=== PATIENT | female | born 1990 | race African-American/Black ===

== ENCOUNTER 2017-09-05 01:57 | Emergency (ER) | payer OTHER ==
[~2017-09-05] VITALS: Ht 160 cm; Wt 158.8 kg
[2017-09-05 02:07] VITALS: BP 168/96
[2017-09-05] MEDS ORDERED: IBUP-1060 PO (02:15)
--- NOTE | 2017-09-05 02:17 | PHYS DOC ---
Adult General Chief Complaint Chief Complaint: DENTAL PROBLEM HPI HPI Patient is a 27 year old F who presents with right lower jaw molar pain. Patient states she woke up with severe tooth pain to her right lower jaw back molar. Patient has a history of severe dental caries with multiple cavities and fillings. Patient denies any swelling to the tooth or jaw. Patient denies any difficult swallowing. Patient states his pain has been coming and going for the past couple weeks or tonight was much worse. Patient has no other complaints. Patient denies any fevers. Review of Systems Review of Systems GEN: Denies fevers, chills, sweats HEENT: Tooth ache CV: Denies chest pain RESP: Denies shortness of air, cough GI: Denies n/v/d NEURO: Denies confusion, dizziness MSK: Denies weakness, joint pain/swelling Physical Exam Physical Exam GEN.: Moderate distress. Alert and oriented. HEENT: Head is normocephalic, atraumatic, widespread dental caries no identifiable abscess NECK: Supple. LUNGS: CTAB. HEART: RRR, S1, S2 present. Peripheral pulses intact ABDOMEN: Soft, nontender. Positive bowel sounds. EXTREMITIES: Without any cyanosis. NEUROLOGIC: Normal speech, normal tone PSYCHIATRIC: Normal affect, normal mood. SKIN: No ulcerations EKG EKG [] Radiology/Procedures Radiology/Procedures [] Course & Med Decision Making Course & Med Decision Making Pertinent Labs and Imaging studies reviewed. (See chart for details) ED course: Patient was seen and examined emergency room there is no identifiable until abscess seen for an I&D. Discussed pain management with the patient and the need to follow-up with dentist for further evaluation and management for pulpitis. MDM: After reviewing the chart, CC/HPI/PMH, physical exam, I do not believe the patient has a severe dental infection warranting further workup and/or admission at this time. Discussed pain management with the patient. Patient needs a follow up dentist in the next one to 2 days. Additional verbal discharge instructions were provided to the patient and that if symptoms get worse or any new symptoms arise that are worrisome to the patient she is to return to the emergency room immediately [] Dragon Disclaimer Dragon Disclaimer This electronic medical record was generated, in whole or in part, using a voice recognition dictation system. Departure Departure Impression: Primary Impression: Tooth pulpitis Disposition: HOME, SELF-CARE Condition: IMPROVED Referrals: NON,STAFF (PCP) Patient Instructions: Toothache-Brief Additional Instructions: Please follow up with your dentist next 1-2 days Scripts Ibuprofen (IBUPROFEN) 800 Mg Tablet 800 MG PO PRN Q6HRS Y for INFLAMMATION for 10 Days, #30 TAB Prov: BISI PEÑALOZA DO 09/05/17 BISI PEÑALOZA DO Sep 05, 2017 02:16
[2017-09-05] MEDS ORDERED: KETOROLAC 60 MG/2 ML INJ. IM ONE (03:00)
== END 2017-09-05 03:13 | disposition home or self-care (01) ==
LOC: ER 01:57
DX: K04.01 Reversible pulpitis (principal)
CPT/HCPCS: 96372; 99283; J1885

== ENCOUNTER 2017-12-18 10:58 | Emergency (ER) | payer MEDICARE, OTHER | END 2017-12-18 11:59 | disposition home or self-care (01) | LOC: ER 10:58 | DX: O99.89 Other specified diseases and conditions complicating pregnancy, childbirth and the puerperium (principal); H65.92 Unspecified nonsuppurative otitis media, left ear; Z3A.01 Less than 8 weeks gestation of pregnancy; Z88.1 Allergy status to other antibiotic agents | CPT/HCPCS: 99283 ==

== ENCOUNTER 2017-12-22 09:31 | Emergency (ER) | payer OTHER, MEDICARE ==
[2017-12-22] MEDS ORDERED: ONDANSETRON PF 4 MG/2 ML VIAL. ×2 (10:21)
[2017-12-22] MEDS: diphenhydrAMINE 50 MG/ML VIAL IVP ×2 (10:21)
[2017-12-22] MEDS: IV NORMAL SALINE 1000ML BAG 1,000 ML IV ×2 (10:21)
[2017-12-22] MEDS: methylPREDNISolone SOD SUCC PF 125 MG/2 ML VIAL. IV ×2 (10:22)
[2017-12-22] MEDS: FAMOTIDINE 20 MG/2 ML VIAL IVP ×2 (10:22)
[2017-12-22] MEDS: ONDANSETRON PF 4 MG/2 ML VIAL. IV ×2 (10:26)
== END 2017-12-22 12:44 | disposition home or self-care (01) ==
LOC: ER 09:31
DX: O9A.211 Injury, poisoning and certain other consequences of external causes complicating pregnancy, first trimester (principal); T78.3XXA Angioneurotic edema, initial encounter; T88.7XXA Unspecified adverse effect of drug or medicament, initial encounter; T36.0X5A Adverse effect of penicillins, initial encounter; Z3A.01 Less than 8 weeks gestation of pregnancy; Z88.1 Allergy status to other antibiotic agents; Y84.8 Other medical procedures as the cause of abnormal reaction of the patient, or of later complication, without mention of misadventure at the time of the procedure; Y92.89 Other specified places as the place of occurrence of the external cause
CPT/HCPCS: 96361; 96374; 96375; 99284-25; J1200; J2405; J2930; J7030; S0028

== ENCOUNTER 2019-08-20 09:31 | Inpatient (IN) | payer MEDICAID ==
[~2019-08-20] VITALS: Ht 160 cm; Wt 194.1 kg
[~2019-08-20 09:31] MED LIST: AMOX500C PO; AZIT250T PO; DIPH25CA58 PO; FAMO20TA5 PO; IBUP-1060 PO; ONDA4TAB10 SL; PRED50TA PO
[2019-08-20] MEDS ORDERED: 0.9 % SODIUM CHLORIDE 10 ML DISP.SYRIN. IV PRN ×2 (09:45→13:00)
[2019-08-20] MEDS ORDERED: TERBUTALINE 1 MG/ML VIAL. SQ PRN (09:45)
[2019-08-20] MEDS ORDERED: CITRIC ACID/SODIUM CITRATE 30 ML SOLUTION. PO PRN (09:45)
[2019-08-20] MEDS ORDERED: LIDOCAINE 1% PF 30 ML VIAL. INJ PRN (09:45)
[2019-08-20] MEDS ORDERED: ONDANSETRON PF 4 MG/2 ML VIAL. IV PRN ×2 (09:45→13:00)
[2019-08-20] MEDS ORDERED: OXYTOCIN 30 UNIT/500 ML PREMIX 500 ML IV PRN ×2 (09:45→13:00)
[2019-08-20 10:10] VITALS: BP 147/70
[2019-08-20] MEDS ORDERED: CLINDAMYCIN 900MG PREMIX 50 ML IV ONE (10:15)
[2019-08-20] MEDS ORDERED: ePHEDrine PF IN SALINE 50 MG/10 ML SYRINGE. IV ONE (10:27)
[2019-08-20] MEDS ORDERED: PHENYLEPHRINE in 0.9% NACL PF 1 MG/10 ML SYRINGE. IV ONE (10:27)
[2019-08-20] MEDS ORDERED: ONDANSETRON PF 4 MG/2 ML VIAL. ONE (10:29)
[2019-08-20] MEDS ORDERED: FAMOTIDINE 20 MG/2 ML VIAL ONE (10:29)
[2019-08-20] MEDS ORDERED: METOCLOPRAMIDE HCL 10 MG/2 ML VIAL. ONE (10:29)
[2019-08-20] MEDS ORDERED: fentaNYL PF VIAL 100 MCG/2 ML VIAL ONE (10:30)
[2019-08-20] MEDS ORDERED: MORPHINE PF 10 MG/10 ML AMPUL. ONE (10:31)
[2019-08-20] MEDS ORDERED: DEXTROSE 5% IV ONE (11:00)
[2019-08-20] MEDS ORDERED: GENTAMICIN SULFATE IV ONE (11:00)
[2019-08-20] MEDS ORDERED: GENTAMICIN SULFATE IV SCH (11:00)
[2019-08-20] MEDS ORDERED: DEXTROSE 5% IV SCH (11:00)
[2019-08-20 11:03] LABS: BASO % 1 % (0-3); EOS % 1 % (0-3); HEMATOCRIT 35.4 % (36.0-47.0); HEMOGLOBIN 11.7 g/dL (12.0-15.5); LYMPH # 1.7 x10^3/uL (1.0-4.8); LYMPH % 26 % (24-48); MEAN CORPUSCULAR HEMOGLOBIN 28 pg (25-35); MEAN CORPUSCULAR HGB CONC 33 g/dL (31-37); MEAN CORPUSCULAR VOLUME 85 fL (79-100); MONO # 0.5 x10^3/uL (0.0-1.1); MONO % 8 % (0-9); NEUT # 4.3 x10^3/uL (1.8-7.7); NEUT % 66 % (31-73); PLATELET COUNT 226 x10^3/uL (140-400); RED BLOOD COUNT 4.15 x10^6/uL (3.50-5.40); RED CELL DISTRIBUTION WIDTH 14.2 % (11.5-14.5); WHITE BLOOD COUNT 6.6 x10^3/uL (4.0-11.0)
[2019-08-20] MEDS: IV RINGERS,LACTATED 1000ML 1,000 ML IV SCH ×2 (11:11→17:51)
[2019-08-20] MEDS ORDERED: GLYCOPYRROLATE 1 MG/5 ML VIAL. ONE (12:05)
[2019-08-20] MEDS ORDERED: OXYTOCIN 10 UNIT/ML VIAL. ONE (12:20)
[2019-08-20] MEDS ORDERED: ZOLPIDEM 5 MG TABLET. PO PRN (13:00)
[2019-08-20] MEDS ORDERED: MAG HYDROX/ALUMINUM HYD/SIMETH 30 ML ORAL.SUSP PO PRN (13:00)
[2019-08-20] MEDS ORDERED: diphenhydrAMINE ORAL ELIXIR 12.5 MG/5 ML ML PO PRN (13:00)
[2019-08-20] MEDS ORDERED: MMR per PROTOCOL. MC PRN (13:00)
[2019-08-20] MEDS ORDERED: MAGNESIUM HYDROXIDE 2,400 MG/30 ML ORAL.SUSP. PO PRN (13:00)
[2019-08-20] MEDS ORDERED: oxyCODONE/APAP 5/325 1 TAB TABLET PO PRN (13:00)
--- NOTE | 2019-08-20 13:02 | PDOC ---
BRIEF OPERATIVE NOTE Pre-Op Diagnosis TIUP Desires RLTC/S Post-Op Diagnosis Same Procedure Performed RLTC/S Surgeon Paddy Product Mgmt Dev Manager none Anesthesia Type: Regional Specimens Obtained None Findings male 8#8oz Complications None ENOCH KO MD Aug 20, 2019 13:02
[2019-08-20 13:14] LABS: BILIRUBIN,URINE SMALL (NEG); CLARITY,URINE CLEAR; COLOR,URINE AMBER; NITRITE,URINE NEGATIVE (NEG); PH,URINE 6.5; PROTEIN,URINE NEGATIVE (NEG-TRACE)
--- NOTE | 2019-08-20 13:25 | PDOC1 ---
OB - History Hx of Present Care: Good Care Ultrasounds: Normal mid trimester US Obstetrical Complications: None Medical Complications: None Past Family/Social History * Past Medical, Surgical, Family and Obstetric Histories reviewed from chart. Blood Type: O+ Rubella: Immune RPR/VDRL: Negative GBS Status: Positive HBsAG: Negative OB - Chief Complaint & HPI Date of Admission: Date of Admission: Aug 20, 2019 at 09:31 Chief Complaint/History : 5 Para: 4 EDC: Aug 27, 2019 Reason for admission: section Admission Nurse Assessment Rev: Yes OB - Admission Exam Physical Exam Vitals: VS - Last 72 Hours, by Label Date Time Temp Pulse Resp B/P (MAP) Pulse Ox O2 Delivery O2 Flow Rate FiO2 08/20/19 10:10 98.3 87 18 147/70 (95) 100 Room Air 98.3 Heart: Regular Rate Lungs: Clear, Equal Abdomen: Gravid Extremities: Normal Pulses, No tenderness or swelling Reflexes: Normal Cervical Dilatation: None Effacement: 0% Station: Ballotable Membranes: Intact Heart Rate: Normal Accelerations: Accelerations Present Short Term Variability: Present Contractions on Admission: None Assessment/Plan Assessment/Plan TIUP AMARJIT/S ENOCH KO MD Aug 20, 2019 13:25
[2019-08-20 13:32] LABS: SQUAMOUS EPITHELIAL CELL,UR MOD /LPF
[2019-08-20 13:33] LABS: BACTERIA,URINE 0 /HPF (0-FEW)
--- NOTE | 2019-08-20 13:45 | OP ---
DATE OF SURGERY: 08/20/2019 PREOPERATIVE DIAGNOSIS: Term intrauterine , desires repeat low transverse . POSTOPERATIVE DIAGNOSIS: Term intrauterine , desires repeat low transverse . PROCEDURE: Repeat low transverse . SURGEON: Otto Thomason MD [employer] PRINCIPAL: None. ANESTHESIA: Regional. ESTIMATED BLOOD LOSS: 700 mL. FLUIDS: Crystalloid. SPECIMENS: None. COMPLICATIONS: None. CONDITION: Stable. FINDINGS: Male , Apgars 7, 8 and 9, weight 8 pounds 8 ounces. Normal uterus, tubes and ovaries. DESCRIPTION OF PROCEDURE: Risks, benefits, indications, alternatives discussed in detail with the patient, the patient was brought to OR theater, placed in the supine position with left lateral uterine displacement. After adequate regional anesthesia, the patient prepped and draped in usual sterile manner. Previous Pfannenstiel incision was incised sharply with a scalpel, carried down through subcutaneous tissue with Bovie cautery. Rectus fascia was nicked in the midline with Bovie cautery, extended laterally in each direction. With Bovie cautery, upper edge of rectus fascia was grasped x 2 with Giselle clamps, elevated above rectus muscle, both bluntly and sharply with scalpel and Bovie cautery. The same procedure was carried out on lower edge of rectus fascia. Rectus muscle was split in midline. A window was created. Care was taken not to injure any underlying structures. The rectus muscle was extended superiorly and inferiorly with Bovie cautery. With gentle stretch on rectus muscle, room was made for delivery of infant. Jeff retractor was placed within the pelvic cavity. Sponges were placed bilaterally. Low transverse hysterotomy incision was made sharply with the scalpel with care not to injure any underlying structures. Membranes were ruptured at this time. Clear fluid was noted. Incision was extended superiorly and laterally with gloved hand. Gloved hand was placed in the lower uterine segment, used to elevate head with fundal pressure from the publisher assistant. Infant was delivered on anterior abdominal wall. Infant cried spontaneously and moved all extremities. Cord was doubly clamped, transected cord between 2 clamps and infant was handed to special care nursery in attendance. Cord blood sample was taken. Placenta delivered spontaneously intact, 3-vessel cord. Any adherent membranes were wiped free with laparotomy sponge. The low transverse hysterotomy incision was reapproximated with 0 Monocryl in a running locking manner, imbricated with 0 Monocryl in a vertical mattress stitch fashion. Sponges were removed from the gutters. Gutters were clean and dry. Lower uterine segment was once again inspected and noted be hemostatic. Jeff retractor was removed. Rectus muscle was reapproximated to the midline with 3-0 Vicryl in a running manner. Rectus muscle was inspected and noted to be hemostatic. Rectus fascia was reapproximated with 0 Stratafix stitches x 2 starting from each corner and meeting in the middle. Subcutaneous tissue was irrigated copiously with warm normal saline. Skin was reapproximated with Insorb galilea. Sponge, needle and instrument counts correct x 2 per nursing staff. The patient went to postop anesthesia recovery in stable condition. OTTO THOMASON MD DR: CHATO/jessie JOB#: [id number] / [id number]
[2019-08-20] MEDS ORDERED: ceFAZolin SODIUM 1 GM in IV DEXTROSE 5% 50 ML IV SCH (14:00)
[2019-08-20] MEDS: IBUPROFEN 400 MG TABLET. PO SCH ×2 (14:00→22:00)
[2019-08-20] MEDS: KETOROLAC 30 MG/ML VIAL. IV PRN (14:26)
[2019-08-20 15:41] VITALS: BP 101/48
[2019-08-20 17:00] VITALS: BP 113/55
[2019-08-20] MEDS: FERROUS SULFATE 325 MG TABLET. PO SCH (17:00)
[2019-08-20] MEDS: CLINDAMYCIN 900MG PREMIX 50 ML IV SCH (17:51)
[2019-08-20 18:00] VITALS: BP 102/61
[2019-08-20 22:00] VITALS: BP 125/69
[2019-08-21] MEDS: KETOROLAC 30 MG/ML VIAL. IV PRN (00:47)
[2019-08-21] MEDS: IV RINGERS,LACTATED 1000ML 1,000 ML IV SCH (01:18)
[2019-08-21 01:30] VITALS: BP 102/58
[2019-08-21] MEDS: CLINDAMYCIN 900MG PREMIX 50 ML IV SCH ×2 (03:02→10:39)
[2019-08-21 06:36] LABS: BASO % 0 % (0-3); EOS # 0.1 x10^3/uL (0.0-0.7); EOS % 1 % (0-3); HEMATOCRIT 28.7 % (36.0-47.0); HEMOGLOBIN 9.7 g/dL (12.0-15.5); LYMPH # 1.2 x10^3/uL (1.0-4.8); LYMPH % 14 % (24-48); MEAN CORPUSCULAR HEMOGLOBIN 29 pg (25-35); MEAN CORPUSCULAR HGB CONC 34 g/dL (31-37); MEAN CORPUSCULAR VOLUME 86 fL (79-100); MONO # 0.9 x10^3/uL (0.0-1.1); MONO % 10 % (0-9); NEUT # 6.7 x10^3/uL (1.8-7.7); NEUT % 75 % (31-73); PLATELET COUNT 166 x10^3/uL (140-400); RED BLOOD COUNT 3.33 x10^6/uL (3.50-5.40); WHITE BLOOD COUNT 8.8 x10^3/uL (4.0-11.0)
[2019-08-21 06:58] VITALS: BP 126/69
[2019-08-21] MEDS: FERROUS SULFATE 325 MG TABLET. PO SCH ×2 (08:00→16:54)
[2019-08-21] MEDS: oxyCODONE/APAP 5/325 1 TAB TABLET PO PRN ×2 (10:39→14:33)
[2019-08-21 10:55] VITALS: BP 123/71
[2019-08-21] MEDS: IBUPROFEN 400 MG TABLET. PO SCH ×3 (14:00→22:00)
[2019-08-21 14:30] VITALS: BP 128/60
[2019-08-21 17:45] VITALS: BP 123/70
[2019-08-21] MEDS: SIMETHICONE 80 MG TAB.CHEW PO PRN (18:00)
[2019-08-21] MEDS: DOCUSATE SODIUM 100 MG CAPSULE. PO PRN (18:00)
[2019-08-21 22:03] VITALS: BP 132/76
[2019-08-22] MEDS: SIMETHICONE 80 MG TAB.CHEW PO PRN (01:42)
[2019-08-22] MEDS: IBUPROFEN 400 MG TABLET. PO SCH ×3 (01:47→21:25)
[2019-08-22 06:00] VITALS: BP 133/69
[2019-08-22 06:34] VITALS: BP 133/69
[2019-08-22] MEDS: DOCUSATE SODIUM 100 MG CAPSULE. PO PRN ×3 (08:20→17:31)
[2019-08-22] MEDS: FERROUS SULFATE 325 MG TABLET. PO SCH ×3 (08:20→17:31)
[2019-08-22] MEDS: oxyCODONE/APAP 5/325 1 TAB TABLET PO PRN ×3 (08:21→21:24)
[2019-08-22 11:00] VITALS: BP 129/74
--- NOTE | 2019-08-22 12:03 | PDOC ---
Provider Note Provider Note 08/21/19 Late Entry Doing well VSS Dressing CDI FU in AM ENOCH KO MD Aug 22, 2019 12:03
--- NOTE | 2019-08-22 12:04 | PDOC ---
Provider Note Provider Note No Complaints VSS Dressing CDI FU in AM ENOCH KO MD Aug 22, 2019 12:04
[2019-08-22 15:55] VITALS: BP_SYST 129
[2019-08-22 18:23] VITALS: BP 134/87
[2019-08-22 21:00] VITALS: BP 129/78
[2019-08-23 05:30] VITALS: BP 121/65
[2019-08-23] MEDS: IBUPROFEN 400 MG TABLET. PO SCH (09:12)
[2019-08-23] MEDS: FERROUS SULFATE 325 MG TABLET. PO SCH (09:13)
[2019-08-23] MEDS: SIMETHICONE 80 MG TAB.CHEW PO PRN (09:13)
[2019-08-23] MEDS: DOCUSATE SODIUM 100 MG CAPSULE. PO PRN (09:13)
[2019-08-23 09:19] VITALS: BP 138/86
--- NOTE | 2019-08-23 10:21 | PDOC3 ---
OB DISCHARGE SUMMARY DATE OF ADMISSION: 08/20/19 DATE OF DISCHARGE: 08/23/19 REASON FOR ADMISSION: section INTRAPARTUM PROCEDURES: : Low Cerv Trans PROBLEM LIST AT DISCHARGE Problems Medical Problems: (1) delivery, delivered, current hospitalization Status: Acute (2) Status: Acute DISCHARGE DIAGNOSIS: Term Delivered DISCHARGE INFORMATION: Activity (ad bryan), Diet (regular), Instructions (pelvic rest x 6 wks, no driving x 2 wks, no lifting > 20 lbs. x 4 wks) HOSPITAL COURSE Term gestation delivered via section without complications. EBONIE BOWERS Jr, MD Aug 23, 2019 10:21
[2019-08-23] MEDS ORDERED: DOCU-109 PO (10:23)
[2019-08-23] MEDS ORDERED: IBUP-1060 PO (10:23)
[2019-08-23] MEDS ORDERED: OXYC1TAB15 PO (10:23)
--- NOTE | 2019-08-23 10:24 | DISCH ---
DISCHARGE INSTRUCTIONS Condition on Discharge Condition on Discharge: Stable Activity After Discharge Activity Instructions for Disc: Activity as tolerated Lifting Instructions after Dis: No heavy lifting Driving Instructions after Dis: No driving for 2 weeks Diet after Discharge Diet after Discharge: Regular Contacting the DRJt after DC Call your doctor for: Concerns you may have Follow-Up Follow up with: Dr. Thomason in 1 week EBONIE BOWERS Jr, MD Aug 23, 2019 10:24
[2019-08-23 13:55] VITALS: BP 128/70
[2019-08-23 16:25] VITALS: BP 136/86
--- NOTE | 2019-08-23 16:25 | NUR ---
Pt. dc'd to home with family. Pt. ambulated to personal vehicle accompanied by RN. DC instructions given to pt, v/u. Pt. plans to follow-up with Dr. Thomason in 1 week.
== END 2019-08-23 16:25 | disposition home or self-care (01) | DRG 787 ==
LOC: OBSVTOIN 09:31 → 3 SO LND 09:31 → 3 NORTH 17:00
PROVIDERS: ADMIT Specialist; ATTEND Specialist
PROC: 10D00Z1 Extraction of Products of Conception, Low, Open Approach (ICD-10-PCS; principal; 2019-08-20)
DX: O34.211 Maternal care for low transverse scar from previous cesarean delivery (principal); D62 Acute posthemorrhagic anemia; Z37.0 Single live birth; Z3A.40 40 weeks gestation of pregnancy; O99.02 Anemia complicating childbirth
CPT/HCPCS: 36415; 81001; 85025; 86592; 86850; 86900; 86901; 87086; J0171; J1580; J1885; J2274; J2370; J2405; J2590; J2765; J3010; J3490; J7120; G0378

== ENCOUNTER 2019-08-26 04:33 | Emergency (ER) | payer MEDICAID ==
[~2019-08-26] VITALS: Ht 160 cm; Wt 194.1 kg
[~2019-08-26 04:33] MED LIST changes: +DOCU-109 PO; +OXYC1TAB15 PO
[2019-08-26] MEDS ORDERED: CEPH500C PO (05:00)
--- NOTE | 2019-08-26 05:01 | PHYS DOC ---
Past Medical History Past Medical History: No Pertinent History Past Surgical History: , Other Additional Past Surgical Histo: dental surgeries. Alcohol Use: None Drug Use: None Adult General Chief Complaint Chief Complaint: POST-OP PROBLEM HPI HPI 29-year-old female who just had a 6 days ago presents secondary to a small area of wound dehiscence. She states she rolled over and felt some fluid. She has had a little pain around the site but no redness. She's not had any fever chills or sweats. She states that she did not have a dressing left in place at the time of discharge at this time.[] Review of Systems Review of Systems Constitutional: Denies fever or chills [] Eyes: Denies change in visual acuity, redness, or eye pain [] HENT: Denies nasal congestion or sore throat [] Respiratory: Denies cough or shortness of breath [] Cardiovascular: No additional information not addressed in HPI [] GI: Denies abdominal pain, nausea, vomiting, bloody stools or diarrhea [] : Denies dysuria or hematuria [] Musculoskeletal: Denies back pain or joint pain [] Integument: Small area where the wound has opened[] Neurologic: Denies headache, focal weakness or sensory changes [] Endocrine: Denies polyuria or polydipsia [] Psychiatric: Reports depression and tearfulness All other systems were reviewed and found to be within normal limits, except as documented in this note. Allergies Allergies Allergies Coded Allergies Type Severity Reaction Last Updated Verified minocycline Allergy Intermediate FACIAL SWELLING 09/05/17 Yes amoxicillin Allergy Unknown FACIAL SWELLING/RASH 07/21/18 Yes Physical Exam Physical Exam Constitutional: Well developed, well nourished, no acute distress, non-toxic appearance. [] HENT: Normocephalic, atraumatic, bilateral external ears normal, oropharynx moist, no oral exudates, nose normal. [] Eyes: PERRLA, EOMI, conjunctiva normal, no discharge. [] Neck: Normal range of motion, no tenderness, supple, no stridor. [] Cardiovascular:Heart rate regular rhythm, no murmur [] Lungs & Thorax: Bilateral breath sounds clear to auscultation [] Abdomen: Bowel sounds normal, soft, no tenderness, no masses, no pulsatile masses abdomen is obese but otherwise benign surgical wound is described below. [] Skin: There is a 1.5 area of central dehiscence with some serosanguineous drainage otherwise the wound appears to be healing nicely[] Back: No tenderness, no CVA tenderness. [] Extremities: No tenderness, no cyanosis, no clubbing, ROM intact, no edema. [] Neurologic: Alert and oriented X 3, normal motor function, normal sensory function, no focal deficits noted. [] Psychologic: Patient is tearful during exam[] Current Patient Data Vital Signs Vital Signs Date Time Temp Pulse Resp B/P (MAP) Pulse Ox O2 Delivery O2 Flow Rate FiO2 08/26/19 04:37 98.8 91 18 147/83 (104) 96 Room Air 98.8 EKG EKG [] Radiology/Procedures Radiology/Procedures [] Course & Med Decision Making Course & Med Decision Making Pertinent Labs and Imaging studies reviewed. (See chart for details) [A wound culture was obtained. Patient was started on Keflex. A dressing was applied. The patient was encouraged to follow with Dr. Mayo today or tomorrow for recheck.] Dragon Disclaimer Dragon Disclaimer This electronic medical record was generated, in whole or in part, using a voice recognition dictation system. Departure Departure Impression: Primary Impression: Wound dehiscence, surgical Disposition: HOME, SELF-CARE Condition: STABLE Referrals: ENOCH KO MD (PCP) Patient Instructions: Depression and Baby Blues, Wound Dehiscence Additional Instructions: Follow with Dr. pruett today or tomorrow for recheck. Return to the emergency department with any new or concerning symptoms Scripts Cephalexin (CEPHALEXIN) 500 Mg Capsule 1 CAP PO TID, #30 CAP Prov: JONATHAN MARVIN DO 08/26/19 Problem Qualifiers Primary Impression: Wound dehiscence, surgical Encounter type: initial encounter Qualified Codes: T81.31XA - Disruption of external operation (surgical) wound, not elsewhere classified, initial encounter JONATHAN MARVIN DO Aug 26, 2019 05:01
[2019-08-26 05:22] VITALS: BP 140/74
== END 2019-08-26 05:49 | disposition home or self-care (01) ==
LOC: ER 04:33
DX: O90.0 Disruption of cesarean delivery wound (principal); Z88.1 Allergy status to other antibiotic agents; Z88.8 Allergy status to other drugs, medicaments and biological substances
CPT/HCPCS: 99283

== ENCOUNTER 2021-01-26 06:05 | Emergency (ER) | payer MEDICAID ==
[~2021-01-26] VITALS: Ht 160 cm; Wt 215.5 kg
[2021-01-26 06:05] VITALS: BP 160/98
[~2021-01-26 06:05] MED LIST changes: +CEPH500C PO
--- NOTE | 2021-01-26 06:38 | PHYS DOC ---
Past Medical History Past Medical History: Other Additional Past Medical Histor: covid 09/07 Past Surgical History: Additional Past Surgical Histo: dental surgeries. Smoking Status: Never Smoker Alcohol Use: None Drug Use: None General Adult EDM: Chief Complaint: CHEST PAIN HPI: HPI: This is a pleasant 30-year-old female presenting the emergency department today with chest pain. Her chest pain occurred overnight. She called the on-call nurse who suggested she come to the emergency department for evaluation. Her chest pain was described as a "flutter" in her chest which was brief and improved with sitting up. Currently the pain is almost entirely gone. The pain was nonradiating. She does not have a history of hypertension hyperlipidemia or diabetes that she is aware of. Non-smoker. Patient denies having history of DVT or PE. She has not had a recent surgery or immobilization. She denies hemoptysis. She does have left lower extremity pain in her knee with some associated swelling. Review of systems is negative for abdominal pain vomiting fevers chills. All other review of systems negative. ED course: 22-year-old female presenting with chest pain. EKG obtained and reviewed by myself shows sinus rhythm with a regular rate. ST segments congruent. Not suggestive of acute ischemia. Work-up in the emergency department is unremarkable. Chest x-ray normal. Troponin within normal limits. D-dimer within normal limits. Will discharge to follow-up with PCP in 1 to 2 days. The patient has been examined and was not found to have an emergency medical condition. The patient was then discharged home in stable condition to follow up with their primary care physician over the next 1-2 days. They were to return if their symptoms worsened or if they were concerned for any reason. They were also instructed to return to the emergency department if they were unable to get the recommended and appropriate follow-up. [id number] discharge instructions and return precautions were given. Patient's questions were answe red to their satisfaction. Patient is comfortable with plan. Heart Score: C/O Chest Pain: Yes HEART Score for Chest Pain: HEART Score for Chest Pain Response (Comments) Value History Slighlty/Non-Suspicious 0 ECG Normal 0 Age < 45 0 Risk Factors 1 or 2 Risk Factors 1 Troponin < Normal Limit 0 Total 1 Risk Factors: Risk Factors: DM, Current or recent (<one month) smoker, HTN, HLP, family hi story of CAD, obesity. Risk Scores: Score 0 - 3: 2.5% MACE over next 6 weeks - Discharge Home Score 4 - 6: 20.3% MACE over next 6 weeks - Admit for Clinical Observation Score 7 - 10: 72.7% MACE over next 6 weeks - Early Invasive Strategies Allergies: Allergies: Allergies Coded Allergies Type Severity Reaction Last Updated Verified minocycline Allergy Intermediate FACIAL SWELLING 09/05/17 Yes amoxicillin Allergy Unknown FACIAL SWELLING/RASH 07/21/18 Yes Physical Exam: PE: Constitutional: Well developed, well nourished, no acute distress, non-toxic appearance. [] HENT: Normocephalic, atraumatic, bilateral external ears normal, oropharynx moist, no oral exudates, nose normal. [] Eyes: PERRLA, EOMI, conjunctiva normal, no discharge. [] Neck: Normal range of motion, no tenderness, supple, no stridor. [] Cardiovascular:Heart rate regular rhythm, no murmur [] Lungs & Thorax: Bilateral breath sounds clear to auscultation [] Abdomen: Bowel sounds normal, soft, no tenderness, no masses, no pulsatile masses. [] Skin: Warm, dry, no erythema, no rash. [] Back: No tenderness, no CVA tenderness. [] Extremities: The patient's left lower extremity is nontender to palpation with normal range of motion. No deformities. The patient is morbidly obese, no obvious difference between the size of the lower extremity on the left compared to the right. Palpable pulse with normal cap refill. The remainder the extremities are nontender with normal neurovascular status. Neurologic: Alert and oriented X 3, normal motor function, normal sensory function, no focal deficits noted. [] Psychologic: Affect normal, judgement normal, mood normal. [] EKG: EKG: [] Radiology/Procedures: Radiology/Procedures: [] Course & Med Decision Making: Course & Med Decision Making Pertinent Labs and Imaging studies reviewed. (See chart for details) [] Dragon Disclaimer: Dragon Disclaimer: This electronic medical record was generated, in whole or in part, using a voice recognition dictation system. Departure Departure Impression: Primary Impression: Chest pain Disposition: 01 DC HOME SELF CARE/HOMELESS Condition: STABLE Referrals: CHUCK TAY MD (PCP) Patient Instructions: Chest Pain (Nonspecific) Additional Instructions: EMERGENCY DEPARTMENT GENERAL DISCHARGE INSTRUCTIONS Follow-up with your primary physician in 1 to 2 days. Return to the emergency department if you have any new or concerning findings. Thank you for coming to [facility] Emergency Department (ED) today and trusting us with you care. We trust that you had a positive experience in our Emergency Department. If you wish to speak to the department management, you may call the Director at [phone]. YOUR FOLLOW UP INSTRUCTIONS ARE FOLLOWS: 1. Do you have a private Doctor? If you do not have a private doctor, please ask for a resource list of physicians or clinics that may be able to assist you with follow up care. 2. If a lab test or culture has been done and does not come back immediately, your results will be reviewed and you will be notified if you need a change in treatment. ADDITIONAL INSTRUCTIONS AND INFORMATION: 1. Your care today has been supervised by a physician who is specially trained in emergency care. Many problems require more than one evaluation for a complete diagnosis and treatment. We recommend that you schedule your follow up appointment as recommended to ensure complete treatment of you illness or injury. If you are unable to obtain follow up care and continue to have a problem, or if your condition worsens, we recommend that you return to the ED. 2. We are not able to safely determine your condition over the phone nor are we able to give sound medical advice over the phone. For these safety reasons, if you call for medical advice we will ask you to come to the ED for further evaluation. 3. If you have any questions regarding these discharge instructions please call the ED at [phone]. SAFETY INFORMATION: In the interest of safety, wellness, and injury prevention; we encourage you to wear your sealbelt, if you smoke; quite smoking, and we encourage family to use a protective helmet for bicycling and other sporting events that present an increased risk for head injury. IF YOUR SYMPTOMS WORSEN OR NEW SYMPTOMS DEVELOP, OR YOU HAVE CONCERNS ABOUT YOUR CONDITION; OR IF YOUR CONDITION WORSENS WHILE YOU ARE WAITING FOR YOUR FOLLOW UP APPOINTMENT; EITHER CONTACT YOUR PRIMARY CARE DOCTOR, THE PHYSICIAN WHOSE NAME AND NUMBER YOU WERE GIVEN, OR RETURN TO THE ED IMMEDIATELY. This condition should be evaluated by your primary care physician and any necessary consulting services for continued management within a few days (1-2) after discharge. Return to the emergency department if you have any new or concerning symptoms including but not limited to fever, chills, nausea, vomiting, intractable pain, any new rashes, chest pain, shortness of breath, uncontrolled bleeding, difficulty breathing, and/or vision loss. MARIANO FISH MD Jan 26, 2021 06:38
--- NOTE | 2021-01-26 06:52 | RAD ---
XR KNEE _3 VIEWS_LT DATE: 01/26/2021 6:19 AM INDICATION: left knee pain COMPARISON: None. FINDINGS: Image quality degraded by patient's habitus. Bones: There is no evidence of acute fracture or dislocation. Joints: The joint spaces are normal. There is no joint effusion. Miscellaneous: None. IMPRESSION: No evidence of acute fracture. Electronically signed by: Maynor Rodriguez MD (01/26/2021 6:49 AM) DEMIAN
--- NOTE | 2021-01-26 06:55 | EKG ---
[facility] [address] [place] [address] Test Date: 2021-01-26 Test Time: 06:11:25 Pat Name: LEIGHTON PERRIN Department: Room: Gender: F Director Alumni Relations: : 1990 Requested By: MARIANO FISH Order Number: [id number] Reading MD: Measurements Intervals [place] Rate: 82 P: 53 SC: 158 QRS: 40 QRSD: 108 T: 31 QT: 376 QTc: 442 Interpretive Statements SINUS RHYTHM LEFT ATRIAL ABNORMALITY ABNORMAL ECG RI6.02 No previous ECG available for comparison
--- NOTE | 2021-01-26 06:56 | RAD ---
XR CHEST 1V INDICATION: cp / Spl. Instructions: / History: . COMPARISON STUDY: None. FINDINGS: Lungs: Normal lung volume. No pulmonary mass or consolidation. The tracheobronchial tree and hilar st ructures are normal. Pleura: No pleural effusion or pneumothorax. Heart and Mediastinum: Cardiomegaly. The great vessels of the thorax are normal. Bones and Soft Tissues: The bones and soft tissues are within normal limits. IMPRESSION: No consolidation. Electronically signed by: Maynor Rodriguez MD (01/26/2021 6:53 AM) [facility]
--- NOTE | 2021-01-26 07:01 | RAD ---
Exam: US DPLX VENOUS EXTREMITY LOWER LT Indication: lle pain and swelling / Spl. Instructions: / History: Technique: Color-flow and pulsed wave duplex ultrasound with compression of venous structures of the left lower extremity. Comparison: None Available. Findings: Duplex ultrasound with compression of the deep venous structures of the left lower extremit y from the common femoral vein through the popliteal vein is negative for DVT. The posterior tibial a nd peroneal veins are segmentally visualized and patent where seen. Normal venous waveforms and augme ntation are noted throughout. Impression: No evidence for DVT in the left lower extremity. Electronically signed by: Maynor Rodriguez MD (01/26/2021 6:59 AM) [facility]
[2021-01-26 07:22] LABS: BASO # 0.1 x10^3/uL (0.0-0.2); BASO % 1 % (0-3); EOS # 0.1 x10^3/uL (0.0-0.7); EOS % 2 % (0-3); HEMATOCRIT 40.7 % (36.0-47.0); HEMOGLOBIN 13.2 g/dL (12.0-15.5); LYMPH # 2.8 x10^3/uL (1.0-4.8); LYMPH % 37 % (24-48); MEAN CORPUSCULAR HEMOGLOBIN 28 pg (25-35); MEAN CORPUSCULAR HGB CONC 33 g/dL (31-37); MEAN CORPUSCULAR VOLUME 87 fL (79-100); MONO # 0.4 x10^3/uL (0.0-1.1); MONO % 5 % (0-9); NEUT # 4.2 x10^3/uL (1.8-7.7); NEUT % 55 % (31-73); PLATELET COUNT 205 x10^3/uL (140-400); RED BLOOD COUNT 4.68 x10^6/uL (3.50-5.40); RED CELL DISTRIBUTION WIDTH 14.5 % (11.5-14.5); WHITE BLOOD COUNT 7.6 x10^3/uL (4.0-11.0)
[2021-01-26 07:28] LABS: CALCIUM 8.9 mg/dL (8.5-10.1); CREATININE 0.7 mg/dL (0.6-1.0); GFR 120.6
[2021-01-26 07:32] LABS: PREG TEST PT QUAL NEGATIVE (NEG)
[2021-01-26 07:33] LABS: ALBUMIN 3.4 g/dL (3.4-5.0); TOTAL PROTEIN 7.5 g/dL (6.4-8.2)
[2021-01-26 07:34] LABS: ALBUMIN/GLOBULIN RATIO 0.8 (1.0-1.7); TOTAL BILIRUBIN 0.8 mg/dL (0.2-1.0)
== END 2021-01-26 09:10 | disposition home or self-care (01) ==
LOC: ER 06:05
DX: R07.89 Other chest pain (principal); M79.605 Pain in left leg; R60.0 Localized edema; Z98.890 Other specified postprocedural states; Z88.1 Allergy status to other antibiotic agents; Z88.8 Allergy status to other drugs, medicaments and biological substances
CPT/HCPCS: 36415; 71045; 73562; 80053; 83690; 84484; 84703; 85025; 85379; 93005; 93971; 99285

== ENCOUNTER 2021-03-29 19:10 | Emergency (ER) | payer MEDICAID ==
[~2021-03-29] VITALS: Ht 160 cm; Wt 215.5 kg
[2021-03-29] MEDS ORDERED: ASPIRIN CHEWABLE 81 MG TABLET. PO ONE (19:30)
--- NOTE | 2021-03-29 19:41 | PHYS DOC ---
Past Medical History Past Medical History: Other Additional Past Medical Histor: covid 09/07 Past Surgical History: Additional Past Surgical Histo: dental surgeries. Smoking Status: Never Smoker Alcohol Use: None Drug Use: None General Adult EDM: Chief Complaint: CHEST PAIN HPI: HPI: Patient is a 31-year-old female complaining of chest pain. Reports she did not want to come initially, states it is all anxiety about her health. Reports onset was earlier this morning after waking up. Certain body positions and drinking water makes better, nothing known makes worse. Patient reports it is vague substernal sharp chest pain that has been constant throughout the entirety of the day. She says it gets worse when she thinks about it as well which is why she started talking to her sister about it. Her sister recommended that she come in to the ER for evaluation as patient had prior PCP that has since closed practice and she has been without care for numerous years. Patient is concerned because she has family history of diabetes and wants to be tested for this today. No fever, sick contacts, URI-like symptoms or known Covid exposure, no r ipping or tearing chest pain, no shortness of breath, no abdominal pain, dysuria, worsen lower extremity swelling past baseline, changes in motor or sensory function, no neurologic deficits. Of note, patient was here January 26, 2021 with similar symptoms, had extensive work-up performed at that time which was grossly unremarkable with recommendations for her to establish care in ou tpatient setting, she has not done so. No tobacco use, admits to vaping only, rare alcohol use and no history of illicit drug use. No history of passing out with sports, no significant family history of heart attacks less than 50, no concerning signs or symptoms for DVT/PE Review of Systems: Review of Systems: Fourteen body systems of review of systems have been reviewed. See HPI for pertinent positives and negative responses, other hurtado all other systems are negative, non-pertinent or non-contributory Heart Score: C/O Chest Pain: Yes HEART Score for Chest Pain: HEART Score for Chest Pain Response (Comments) Value History Slighlty/Non-Suspicious 0 ECG Normal 0 Age < 45 0 Risk Factors 1 or 2 Risk Factors 1 Total 1 Risk Factors: Risk Factors: DM, Current or recent (<one month) smoker, HTN, HLP, family history of CAD, obesity. Risk Scores: Score 0 - 3: 2.5% MACE over next 6 weeks - Discharge Home Score 4 - 6: 20.3% MACE over next 6 weeks - Admit for Clinical Observation Score 7 - 10: 72.7% MACE over next 6 weeks - Early Invasive Strategies Allergies: Allergies: Allergies Coded Allergies Type Severity Reaction Last Updated Verified minocycline Allergy Intermediate FACIAL SWELLING 09/05/17 Yes amoxicillin Allergy Unknown FACIAL SWELLING/RASH 07/21/18 Yes Physical Exam: PE: Constitutional: Well developed, well nourished, no acute distress, non-toxic appearance. Morbidly obese HENT: Normocephalic, atraumatic, bilateral external ears normal, oropharynx moist, no oral exudates, nose normal. Eyes: PERRLA, EOMI, conjunctiva normal, no discharge. Neck: Normal range of motion, no tenderness, supple, no stridor. Cardiovascular: Heart rate regular, sinus rhythm, no murmurs rubs or gallops Lungs & Thorax: Bilateral breath sounds clear to auscultation but diminished bilaterally due to body habitus Abdomen: Bowel sounds normal, soft, no tenderness, no masses, no pulsatile yassine s. Nonsurgical abdomen, no peritoneal signs Skin: Warm, dry, no erythema, no rash. Back: No tenderness, no CVA tenderness. Extremities: No tenderness, no cyanosis, no clubbing, ROM intact, no edema. Neurologic: Alert and oriented X 3, grossly normal motor & sensory function, no focal deficits noted. Psychologic: Affect normal, judgement normal, mood normal. Current Patient Data: Labs: Current Medications Medications (Trade) Dose Ordered Sig/Jacob Route PRN Reason Start Time Stop Time Status Last Admin Dose Admin Aspirin (Aspirin Chewable) 162 mg 1X ONCE PO 03/29/21 19:30 03/29/21 19:31 DC 03/29/21 19:49 Vital Signs: Vital Signs Date Time Temp Pulse Resp B/P (MAP) Pulse Ox O2 Delivery O2 Flow Rate FiO2 03/29/21 19:24 81 18 146/59 (88) 97 Room Air 03/29/21 19:28 98.5 98.5 Vital Signs Date Time Temp Pulse Resp B/P (MAP) Pulse Ox O2 Delivery O2 Flow Rate FiO2 03/29/21 21:20 78 22 150/75 (100) 97 Room Air 5/11/21 19:28 98.5 98.5 EKG: EKG: EKG ordered and interpreted by myself at 1922 hrs. as sinus rhythm at 90 bpm, unremarkable intervals, no axis deviation, no acute ischemic findings, no STEMI Radiology/Procedures: Radiology/Procedures: [] Course & Med Decision Making: Course & Med Decision Making Slightly tachycardic which patient reports is normal for her otherwise hemodynamically stable. HPI and physical exam grossly nonconcerning POC glucose and EKG nonconcerning for emergent or surgical findings. Reviewed comprehensive ER work-up obtained January 2021. Reports her symptoms have never really gone away since then. States she is anxious about her health. She has not followed up with primary care physician since that time for further evaluation I discussed potential need for repeat diagnostic work-up in ER setting that would include repeat labs and imaging, patient reports feeling asymptomatic, states she got anxious when she was talking about her health with sister who advised she come to the emergency room because she does not have a primary care physician. Patient needs a primary care physician I disclosed to patient that this might be an acute presentation more concerning pathology and so, close outpatient follow-up and low threshold to return to ER for evaluation is advised. Strict return precautions were discussed with good understanding by patient. All questions and concerns addressed prior to ER departure Dragon Disclaimer: Rufus Disclaimer: This electronic medical record was generated, in whole or in part, using a voice recognition dictation system. Departure Departure Impression: Primary Impression: Anxiety about health Disposition: 01 HOME / SELF CARE / HOMELESS Condition: STABLE Referrals: NO PCP (PCP) Additional Instructions: As discussed, your physical exam and work-up while in ER was reassuring. You are experiencing anxiety about your health which is good and normal. With that said, it is highly advised that you follow-up with your primary care physician as discussed at length as you need to discuss some of your symptoms with them to be further evaluated. I did mention you would benefit from outpatient testing such as hemoglobin A1c which will measure your blood sugar over the past 3 months, a test which we do not perform in the emergency room. You would also benefit from other screening exams pertinent to your age and risk factors. You have been given a list of local resources and primary care physicians to call and discuss setting up care with, please come back for repeat evaluation if any concerning signs or symptoms present prior to outpatient follow-up. It was a pleasure to take care of you and I wish you the best going forward CLAIR ESPARZA DO March 29, 2021 19:41
[2021-03-29 21:20] VITALS: BP 150/75
--- NOTE | 2021-03-30 08:34 | EKG ---
[facility] [address] [place] [id number] Test Date: 2021-03-29 Test Time: 19:18:48 Pat Name: LEIGHTON PERRIN Department: Room: Gender: F Pvc Loader: : 1990 Requested By: CLAIR ESPARZA Order Number: [id number] Reading MD: Measurements Intervals [place] Rate: 90 P: 49 MA: 156 QRS: 43 QRSD: 106 T: 36 QT: 356 QTc: 440 Interpretive Statements SINUS RHYTHM LEFT ATRIAL ABNORMALITY ABNORMAL ECG RI6.02 No previous ECG available for comparison
== END 2021-03-29 21:25 | disposition home or self-care (01) ==
LOC: ER 19:10
DX: F41.9 Anxiety disorder, unspecified (principal); R07.89 Other chest pain; E66.01 Morbid (severe) obesity due to excess calories; Z68.45 Body mass index [BMI] 70 or greater, adult; Z88.1 Allergy status to other antibiotic agents
CPT/HCPCS: 93005; 99283